=== PATIENT | female | born 1940 | race Caucasian/White ===

== ENCOUNTER 2016-06-12 14:40 | Inpatient (IN) | payer MEDICARE ==
[2016-06-12] VITALS (10 sets, daily range): BP systolic 139–160; BP diastolic 81–90; PULSE 90–93; RESP 19–32; O2SAT 88–100
[~2016-06-12] VITALS: Ht 154.9 cm; Wt 45.0 kg
[~2016-06-12 14:40] MED LIST: ADV250INH IH; ALBU18HF INH; ASPI-973 PO; ATRV10T PO; BISO5TAB2 PO; BUPR150T8 PO; IPRA3AMP IH; LEVO50TA83 PO; LEVO750T9 PO; LOSA25TA2 PO; OXYB5TAB10 PO; PRED-508 PO; ROFL500T PO; SERT50TA PO
[2016-06-12 15:13] LABS: BASOPHILS % (AUTO) 0.2 % (0-3); EOSINOPHILS % (AUTO) 8.7 % (0-5); MONOCYTES % (AUTO) 8.2 % (4-12); Mean Corpuscular Hemoglobin 27.3 pg (27.0-35.0); Mean Corpuscular Volume 93.1 fL (81-100); NEUTROPHILS % (AUTO) 70.6 % (40-74); Platelet Count 313 bil/L (150-400)
--- NOTE | 2016-06-12 15:27 | ED.REPORT ---
HPI-Dyspnea / Wheezing Date of Service Jun 12, 2016 ED Provider: Dav Larose DO Patient is a 75 year old female with a history of COPD, CHF, constant oxygen use and multiple other medical concerns presenting to the ED complaining of shortness of breath onset two days ago. She reports that she has never felt this way before. The patient admits to a productive cough, fatigue, diarrhea x2 daily, and waking up with a headache, though she denies current headache. The patient denies fever, vomiting, abdominal pain, photophobia, dysuria, chest pain and any recent injuries. She states that she has been using her nebulizers more the last few days. The patient normally uses oxygen but was not currently using it. Nursing Notes Stated Complaint: SHORTNESS OF BREATH Chief Complaint: Respiratory Distress Nursing Notes Reviewed: Yes Allergies: Coded Allergies: iodine (Verified Allergy, Mild, 06/12/16) rash cefuroxime (Verified Allergy, Unknown, 06/12/16) doxycycline (Verified Allergy, Unknown, 06/12/16) lisinopril (Verified Allergy, Unknown, 06/12/16) sulfanilamide (Verified Allergy, Unknown, 06/12/16) Scheduled Aspirin (Aspirin) 81 Mg Tablet.dr 81 MG PO DAILY Atorvastatin (Lipitor) 10 Mg Tab 10 MG PO HS Bisoprolol Fumarate (Bisoprolol Fumarate) 5 Mg Tablet 2.5 MG PO QAM Bupropion ER (Wellbutrin SR) 150 Mg Tablet.er 150 MG PO DAILY Fluticasone/Salmeterol (Advair 250-50 Diskus) 60 Puff/Inh Disk 1 PUFF IH BID Levofloxacin (Levaquin) 750 Mg Tablet 750 MG PO DAILYAC Levothyroxine (Synthroid) 50 Mcg Tablet 50 MCG PO DAILYAC Losartan Potassium (Cozaar) 25 Mg Tablet 25 MG PO DAILY Oxybutynin Chloride (Oxybutynin Chloride) 5 Mg Tablet 5 MG PO BID Prednisone (Deltasone) 20 Mg Tablet 40 MG PO DAILY Roflumilast (Daliresp) 500 Mcg Tablet 500 MCG PO DAILY Sertraline HCl (Zoloft) 50 Mg Tablet 150 MG PO DAILY Scheduled PRN Albuterol Sulfate (Ventolin HFA Inhaler) 200 Puff/18 Gm Inhaler 1 PUFF INH Q4 PRN PRN For Wheezing Ipratropium/Albuterol Sulfate (Iprat-Albut 0.5-3(2.5) mg/3 mL Inhalant Soln) 3 Ml Ampul.neb 3 ML IH Q6 PRN PRN qid General Time Seen by MD: 15:25 Chief Complaint Shortness of breath Hx Obtained From: Patient Arrived By: Walk-in Sudden in Onset?: No Onset Occurred: 2 days ago Recent Healthcare: Recent doctor visit Similar Sx Previous: No Past Medical History Past Medical History Notes: Last admit 01/2014 Past Medical History Chronic hypoxic hypercapnic respiratory failure due to chronic obstructive pulmonary disease on continuous 2 L/min NC oxygen. Nicotine dependence, active with 1-2 cigarette smoking with greater than 60 pack-year history. Congestive heart failure, chronic, systolic dysfunction due to ischemic cardiomyopathy. Echo (07/08/13): LVEF 30%-35% with severe hypokinesis of the majority of the posterior wall and distal half of the lateral wall. Coronary artery disease s/p VT on medical management only per Dr. Clifford Mora. Dyslipidemia. Anemia, chronic. Depression. Hypothyroidism. Insomnia. Osteoporosis. Colon polyps. Reports: COPD, Hyperlipidemia, Hypertension, Stroke Reports: Urinary tract infection Past Surgical History multiple colonoscopies, polypectomy Reports: Hysterectomy Family History Sisters had Lung cancer Smoking History Former Smoker (quit 2013) Social History Alcohol Use: "Social" Drug Use: Denies drug use Ambulatory Status Independent Review of Systems Constitutional: Reports: Fatigue, Denies: Fever Respiratory: Reports: Prod cough, clear, Shortness of breath Cardiovascular: Denies: Chest pain Complete sys rev & neg: except as marked. Eyes: Denies: Photophobia GI: Reports: Diarrhea (x2 a day), Denies: Abdominal pain, Vomiting Female: Denies: Dysuria Neurologic: Reports: Headache (not currently) Physical Exam Initial Vital Signs Vital Signs (First) Date Time Temp Pulse Resp B/P Pulse Ox O2 Delivery O2 Flow Rate FiO2 06/12/16 14:46 36.4 91 22 160/90 100 Simple Mask 8 06/12/16 16:00 30 Initial VS: Reviewed General/Constitutional: Awake, Alert Appearance / Presentation: Positive: Cachectic, Frail thin Neck: Atraumatic, Supple, Full range of motion, No JVD Respiratory / Chest: Atraumatic, Breath sounds = bilat, No respiratory distress diffuse expiratory wheezes Cardiovascular: Heart rate NL, Regular rhythm, Heart sounds NL ENT: Atraumatic, Airway patent, Mucous membranes moist Abdomen: Atraumatic, Soft, Non-tender Back: Atraumatic, Full range of motion Lower Extremity / Pelvis / MS: Atraumatic, Full range of motion Skin: Atraumatic, Color NL, No rash, Warm, Dry Neurologic: Oriented X3, Speech NL, No motor deficits, No sensory deficits Head / Eyes: Atraumatic, Normocephalic, PERRL, EOMI Upper Extremity / MS: Atraumatic, Full range of motion Psychiatric: Affect NL, Mood NL Interpretation & Diagnostics Lab Results Interpretation Result Diagram: 06/12/16 1509 06/12/16 1509 Test 06/12/16 15:09 White Blood Count 8.6th/mm3 (3.8-10.1) Red Blood Count 4.06mil/mm3 (3.90-5.20) Hemoglobin 11.1g/dL (12.0-15.6) Hematocrit 37.8% (35.0-46.0) Mean Corpuscular Volume 93.1fL (81-100) Mean Corpuscular Hemoglobin 27.3pg (27.0-35.0) Mean Corpuscular Hemoglobin Concent 29.4% (32.0-37.0) Red Cell Distribution Width 13.9% (12.3-15.4) Platelet Count 313bil/L (150-400) Neutrophils (%) (Auto) 70.6% (40-74) Lymphocytes (%) (Auto) 12.2% (14-46) Monocytes (%) (Auto) 8.2% (4-12) Eosinophils (%) (Auto) 8.7% (0-5) Basophils (%) (Auto) 0.2% (0-3) Sodium Level 135mEq/L (134-144) Potassium Level 4.8mEq/L (3.5-5.2) Chloride Level 89mEq/L (97-108) Carbon Dioxide Level 35mmol/L (18-29) Blood Urea Nitrogen 13mg/dL (8-27) Creatinine 0.60mg/dL (0.57-1.00) Estimat Glomerular Filtration Rate 140mL/min (>59) Glucose Level 116mg/dL (60-99) Calcium Level 10.4mg/dL (8.5-10.1) Total Bilirubin 0.2mg/dL (0.0-1.2) Aspartate Amino Transf (AST/SGOT) 36U/L (0-50) Alanine Aminotransferase (ALT/SGPT) 18U/L (0-32) Alkaline Phosphatase 67U/L (25-165) Troponin T < 0.010ug/L (0.0-0.011) Pro-B-Type Natriuretic Peptide 199.6pg/mL (0-301) Total Protein 6.9g/dL (6.4-8.4) Albumin 4.2g/dL (3.4-5.0) Lab Results Interpretation: pH 7.22/pCO2 104/ pO2 65.4/ cHCO3-(P) 42.7/ cBase(B) 13.3 ECG Interpretation ECG Interpretation: low voltage, all extremity lead <0.5mV No STEMI Interpreted by: ED physician Normal ECG Interpretation: Normal rate (92), Normal sinus rhythm X-Ray Chest Interpretation Chest Xray Interpretation: IMPRESSION: 1. Chronic obstructive pulmonary disease 2. No acute cardiopulmonary abnormality. Dictated by: Suhas Marino M.D. on 06/12/2016 at 15:29 Approved by: Suhas Marino M.D. on 06/12/2016 at 15:31 Interpretation / Wet Read by: Interpret - Radiologist Re-Eval/Medical Decision Med Decision/Clinical Course Hypoxia and hypercapnic respiratory failure due to COPD. Patient will be placed on BiPAP in the ER and admitted. Source of Hx: Old records Re-Evaluation/Progress #1: Time of Eval: 16:13 Patient Status: Condition improved Re-Evaluation/Progress Note: Rechecked patient whose condition has improved. Re-Evaluation/Progress #2: Time of Eval: 16:26 Patient Status: Condition improved Re-Evaluation/Progress Note: Rechecked patient. Discussed plan for admittance with the patient. The patient understands and agrees to the plan for admit. All questions were addressed. Consultation : Referral / Consult Name: Ranulfo Whaley MD Consulted With: Hospitalist Call Returned at: 16:47 Bomb Technician: Agrees with eval, Agrees with plan, Accepts admit Note: Consult with Dr. Whaley, hospitalist, who agrees with the evaluation and plan to admit the patient. Counseled Regarding: Diagnosis, Lab results, Need for admission Discharge & Departure Impression: Primary Impression: Hypercapnic respiratory failure Chronicity: unspecified Qualified Code: J96.92 - Respiratory failure, unspecified with hypercapnia Disposition: ADMITTED TO HOSPITAL Discharge Condition All VS Reviewed: Yes Condition: Stable Referrals: Edil Miller MD (PCP) Crit Care Except Billable Proc Time Spent: 30-74 minutes Services Performed: Patient management by me, Time spent at bedside, Reviewing test results Critical Care Notes: See MDM Scribe Attestation Portions of this note were transcribed by Jayla Nguyễn and Sophia Sarabia. I, Dr. Larose personally performed the history, physical exam and medical decision-making; I reviewed and confirmed the accuracy of the information in the transcribed note. Signed by: Jayla Nguyễn and eJnny Cullen, and [phone]. copies to: Edil Miller MD, Timothy S DO Jun 12, 2016 15:27 Mary Nguyễn Jun 12, 2016 15:39 SOPHIA SARABIA Jun 12, 2016 17:56
--- NOTE | 2016-06-12 15:32 | DRSVH ---
PROCEDURE: X-RAY CHEST ONE VIEW, PORTABLE ([id number]) INDICATIONS: shortness of breath TECHNIQUE: One view of the chest was acquired. COMPARISON: 09/30/2015 FINDINGS: Surgical changes and devices: None. Lungs and pleura: No pleural effusions or pneumothorax. Lungs are clear. Lung is hyperexpanded and upper lobes are hyperlucent compatible with emphysema. Mediastinum: Mediastinal contours appear normal. Heart size is normal. Aortic calcifications. Bones and chest wall: No suspicious bony lesions. Old fracture right lower ribs laterally. Overlyin g soft tissues appear unremarkable. IMPRESSION: 1. Chronic obstructive pulmonary disease 2. No acute cardiopulmonary abnormality. Dictated by: Suhas Marino M.D. on 06/12/2016 at 15:29 Approved by: Suhas Marino M.D. on 06/12/2016 at 15:31
[2016-06-12] MEDS ORDERED: Albuterol 2.5 mg/3 mL Inhalation Solution NEB ONE (15:35)
[2016-06-12 15:39] LABS: TROPONIN T < 0.010 ug/L (0.0-0.011)
--- NOTE | 2016-06-12 15:58 | ABG ---
DateTimeAnalyzed 15:51:56 -_ pH ____7.220 - 7.350 7.450 pCO2 104 -mmHg 35.0 45.0 pO2 ___65.4__ -mmHg 70.0 100 HCO3- ___42.7__ -mmol/L 22.0 26.0 ABE ___13.3__ -mmol/L -2.0 2.0 tHb ___11.0__ -g/dL 12.0 18.0 O2Hb ___90.1__ -% 95.0 COHb ____2.0__ -% 1.5 MetHb ___-0.1__ -% 0.4 1.5 sO2 ___91.8__ -% FIO2 ___28.0__ -% Drawn By KBB - Date/Time Notified____ 15:57:00 -_ Oxygen Device 1 __CANNULA - Notified By KBB - Notified Whom Dav O'cele DO -_ B 753 -mmHg K+ ____4.5__ -mmol/L tO2 ___14.0__ -Vol% Sanjay test _Positive -
[2016-06-12] MEDS ORDERED: MethylprednisoLONE Sodium Succinate 62.5 mg/mL 2 mL Inj IVPUSH ONE (16:20)
[2016-06-12] MEDS ORDERED: Alum-Mag Hydrox-Simeth 30 mL Suspension PO PRN ×2 (16:50→18:00)
[2016-06-12] MEDS ORDERED: Ondansetron 2 mg/mL 2 mL Inj IVPUSH PRN ×2 (16:50→18:00)
[2016-06-12] MEDS ORDERED: Polyethylene Glycol (PEG) 17 Gm Powder PO PRN (18:00)
--- NOTE | 2016-06-12 18:19 | PCM.HPMED ---
Subjective Date of Service Jun 12, 2016 Primary Provider: Admitting Physician: Primary Care Physician: Edil Miller MD Attending Physician: Chief Complaint: Shortness of breath History of Present Illness: Patient is a 75-year-old female with COPD, CHF and CVA presenting with shortness of breath. Patient reports the shortness of breath started about two days ago with an associated occasional cough. She states the cough productive of clear, milky sputum. She currently resides at [facility] and reports using supplemental oxygen at baseline and Trilogy at night; however, due to the mask being uncomfortable she does not use Trilogy consistently. Earlier today the patient was taking a nap and the nasal cannula for her supplemental oxygen fell off. Her electrical service technician happened to be present and found the patient somnolent. The patient is not aware of how long she was without supplemental oxygen. The patient was subsequently brought to [facility] ED for further evaluation. ABG in the ED : 7.230 / 104 / 65.4 / 42.7. Patient was started on BiPAP and given a dose of Solu-Medrol 125mg in the ED. At time of visit, the patient was alert. She denies fever, chills, chest pain, abdominal pain, emesis, dysuria. Vitals in the ED: temp 36.4, HR 91, RR 22 satting 100% on BiPAP, BP 160/90. Chest x-ray suggestive of COPD and reads no acute cardiopulmonary abnormality. Review of Systems: A comprehensive review of systems was conducted with the patient and found to be negative except as above in the History of Present Illness. Allergies Coded Allergies: iodine (Verified Allergy, Mild, 06/12/16) rash cefuroxime (Verified Allergy, Unknown, 06/12/16) doxycycline (Verified Allergy, Unknown, 06/12/16) lisinopril (Verified Allergy, Unknown, 06/12/16) sulfanilamide (Verified Allergy, Unknown, 06/12/16) Home Medications Advair 250/50 1 puff BID ASA 81mg daily Azithromycin 250mg every other day Bisoprolol fumarate 2.5mg daily Losartan 25mg daily Daliresp 500mcg daily Ipratropium bromide 0.06% nasal spray - 2 sprays each nostril BID Levothyroxine 50mcg daily Atorvastatin 10mg daily Oxybutynin 5mg daily Ventolin 90mcg 2 puffs Q4-6 hours PRN Zoloft 150mg daily DuoNeb PMH Chronic hypoxic hypercapnic respiratory failure due to chronic obstructive pulmonary disease on continuous 2 L/min NC oxygen HFrEF secondary to ischemic cardiomyopathy. Echo (07/08/13) LVEF 30%-35% Coronary artery disease s/p NM Dyslipidemia Anemia, chronic Depression Hypothyroidism Insomnia Osteoporosis Hypertension History of CVA . Surgical History Hysterectomy Cataracts Family History Sister with lung cancer Social History Occupation: Retired, former sign erector and repairer Hx Alcohol Use: Yes (2 drinks a day) Hx Substance Use: No Hx Tobacco Use: Yes (1-2 PPD x 50 years) Smoking Status: Former Smoker (quit 2013) Exam Vital Signs Vital Sign - Last Date Time Temp Pulse Resp B/P Pulse Ox O2 Delivery O2 Flow Rate FiO2 06/12/16 14:46 36.4 91 22 160/90 100 Simple Mask 8 Exam General: No acute distress, thin and frail appearing, appropriately interactive HEENT: Normocephalic, atraumatic. External ears without defect. Anicteric sclerae, moist conjunctivae, and no lid lag. BiPAP mask in place. Neck: Supple. No jugular venous distension. Cardiovascular: Distant heart sounds. Regular rate and rhythm with no murmurs, rubs, or gallops appreciated Pulmonary: Diffuse wheezing bilaterally. Poor effort. No use of accessory muscles. Abdomen: Bowel tones present. Soft, nontender, nondistended. No hepatosplenomegaly or masses appreciated. Extremities: No clubbing, cyanosis, edema, or lymphadenopathy appreciated. Skin: Normal temperature, turgor, and texture; no rash, ulcers, or subcutaneous nodules appreciated. Small skin abrasions on left osorio. Neurological: Cranial nerves grossly intact. Psychiatric: Normal mood and affect. Alert and oriented to person, place, and time. Lab and Diagnostics Result Diagram: 06/12/16 1509 06/12/16 1509 X-Rays, CTs and MRIs Date of Service: 06/12/16 1504 PROCEDURE: X-RAY CHEST ONE VIEW, PORTABLE ([id number]) INDICATIONS: shortness of breath TECHNIQUE: One view of the chest was acquired. COMPARISON: 09/30/2015 FINDINGS: Surgical changes and devices: None. Lungs and pleura: No pleural effusions or pneumothorax. Lungs are clear. Lung is hyperexpanded and upper lobes are hyperlucent compatible with emphysema. Mediastinum: Mediastinal contours appear normal. Heart size is normal. Aortic calcifications. Bones and chest wall: No suspicious bony lesions. Old fracture right lower ribs laterally. Overlying soft tissues appear unremarkable. IMPRESSION: 1. Chronic obstructive pulmonary disease 2. No acute cardiopulmonary abnormality. Dictated by: Suhas Marino M.D. on 06/12/2016 at 15:29 Approved by: Suhas Marino M.D. on 06/12/2016 at 15:31 Assessment & Plan Patient is a 75-year-old female with COPD, CHF and CVA presenting with shortness of breath and admitted for acute hypoxemic hypercapnic respiratory failure. Hospital day #1. 1. Acute on chronic hypoxemic, hypercapnic respiratory failure. Present on admission. Ongoing -Suspect secondary to COPD exacerbation and period without supplemental oxygen -ABG in ED: 7.220 / 104 / 65.4 / 42.7 -Continue with BiPAP -Oxygen to keep sats 89-92% -Repeat ABG 2. Acute COPD exacerbation. Present on admission. Ongoing -Baseline supplemental oxygen 2L/min at home -Patient received Solu-Medrol 125mg in ED -Prednisone 40mg daily. Anticipate taper upon discharge -Continue home azithromycin 250mg every other day -DuoNeb QIDWA -Albuterol neb PRN 3. Hypertension, chronic. Present on admission. Currently not controlled -Continue losartan 25mg daily 4. Alcohol dependence, chronic. Present on admission. Ongoing -Patient reports drinking 2 glasses of vodka every night -Currently no signs of withdrawals. Continue to monitor for withdrawal and initiate CIWA if necessary 5. Normocytic anemia, chronic. Present on admission. Active -Uncertain etiology but a recognized issue since 2013 based on medical records 6. HFrEF, chronic. Present on admission. Stable -Not currently in acute exacerbation based on physical examination. Pro-BNP 199.6 -Last echo 12/2015: Borderline global hypokinesis. EF 50%-55% -Continue losartan 25mg and bisoprolol 2.5mg daily 7. CAD, chronic. Present on admission. Presumed stable -Continue aspirin 81mg 8. Dyslipidemia, chronic. Present on admission. Presumed stable -Continue atorvastatin 10mg daily 9. Hypothyroidism, chronic. Present on admission. Stable -Continue home levothyroxine dose 50mcg daily 10. Depression, chronic. Present on admission. Presumed stable -Continue home dose Zoloft 150 mg daily 11. History of tobacco use -Congratulated patient on maintaining smoking abstinence. Patient Status: Patient is admitted under inpatient status with expected length of stay greater than 2 midnights due to severity of presenting symptoms, risk of adverse event, and complexity of treatment plan. Pain Evaluation: Adequate Pain Control VTE Prophylaxis: Sub-Q Heparin (Unfractionated) Resuscitation Status: DNR/DNI:Do Not Resuscitate/Intubate Attending Statement The patient was seen and examined together with Dr. Gill on 06/12/2016 and I agree with the history, exam and plan as outlined in the note above. . Clement Gill DO Jun 12, 2016 16:52 Ranulfo Whaley MD Jun 15, 2016 19:39
--- NOTE | 2016-06-12 18:29 | NUR ---
Transferred from ER to [facility] and placed back on BIPAP at bedside. Small ffm used, patient has a small facial features and dentures kept in to help maintain seal due to small face. No mepilex used at this time, may consider if patient bridge of nose appears red/skin breakdown. Home Trilogy ventilator brought into bedside.
[2016-06-12] MEDS ORDERED: AZIT250T4 PO (18:53)
[2016-06-12] MEDS ORDERED: SERT100T9 PO (18:53)
--- NOTE | 2016-06-12 19:21 | NUR ---
Arrived to unit Pt arrived to [facility] room 2005 at ~1815 from ED, Pt placed back on BiPAP by RT, VSS on BiPAP, denies pain, A&Ox3.
--- NOTE | 2016-06-12 19:31 | ABG ---
DateTimeAnalyzed 19:28:00 -_ pH ____7.259 - 7.350 7.450 pCO2 ___82.5__ -mmHg 35.0 45.0 pO2 ___68.3__ -mmHg 69.0 116 HCO3- ___35.7__ -mmol/L 22.0 26.0 ABE ____6.7__ -mmol/L -2.0 2.0 tHb ___11.0__ -g/dL O2Hb ___92.3__ -% COHb ____1.3__ -% MetHb ____1.0__ -% sO2 ___94.5__ -% FIO2 ___40.0__ -% Drawn By MT - Date/Time Notified____ 19:31:00 -_ Oxygen Device 1 ____BIPAP - Notified By MT - Notified Whom ly - B 754 -mmHg tO2 ___14.3__ -Vol% Sanjay test _Positive -
[2016-06-12] MEDS: Albuterol-Ipratropium 3 mL Inhalation Solution NEB SCH (21:00)
[2016-06-13] VITALS (13 sets, daily range): BP systolic 110–134; BP diastolic 62–82; PULSE 83–100; RESP 18–26; O2SAT 92–100
[2016-06-13] MEDS: Heparin 5,000 Unit/mL Inj SUBQ SCH ×3 (00:59→16:20)
[2016-06-13] MEDS: Albuterol 1.25 mg/3 mL Inhalation Solution NEB PRN ×2 (01:15→23:22)
[2016-06-13 07:19] LABS: BASOPHILS % (AUTO) 0 % (0-3); EOSINOPHILS % (AUTO) 0 % (0-5); MONOCYTES % (AUTO) 12.5 % (4-12); Mean Corpuscular Hemoglobin 27.4 pg (27.0-35.0); Mean Corpuscular Volume 93.6 fL (81-100); NEUTROPHILS % (AUTO) 73.5 % (40-74); Platelet Count 305 bil/L (150-400)
--- NOTE | 2016-06-13 07:46 | NUR ---
Respiratory Pt continued on Bipap @ 45% FiO2 all shift. Pt stated that she was feeling much better and looking forward to being able to take mask off. Pt ABG @ 191 pH7.25 pCO2 83 pO2 68.3 cHCO3 35.7. Suggested to Day RN to have ABG's redrawn this AM to see if she would be able to take mask off today and transition to NC and home trilogy machine. VSS and Tele SR
[2016-06-13] MEDS ORDERED: predniSONE 20 mg Tablet PO SCH ×2 (08:30)
[2016-06-13] MEDS: ROFLUMILAST 500 MCG PO SCH (08:30)
[2016-06-13] MEDS: Albuterol-Ipratropium 3 mL Inhalation Solution NEB SCH ×3 (10:30→20:19)
[2016-06-13] MEDS: levoFLOXacin 750 mg Tablet PO SCH (10:34)
[2016-06-13] MEDS: BISOPROLOL PO SCH (10:38)
--- NOTE | 2016-06-13 12:59 | ABG ---
DateTimeAnalyzed 10:58:12 -_ pH ____7.257 - 7.350 7.450 pCO2 ___88.7__ -mmHg 35.0 45.0 pO2 ___98.0__ -mmHg 70.0 100 HCO3- ___39.5__ -mmol/L 22.0 26.0 ABE ___11.1__ -mmol/L -2.0 2.0 tHb ___10.8__ -g/dL 12.0 18.0 O2Hb ___96.8__ -% 95.0 COHb ____1.7__ -% 1.5 MetHb ____0.0__ -% 0.4 1.5 sO2 ___98.5__ -% FIO2 ___45.0__ -% PEEP ____6.0__ -cmH2O Set_RR 18 -b/min Vt __340.0__ -L Drawn By gj - Date/Time Notified____ 12:59:00 -_ Spontaneous_RR 21 -b/min Oxygen Device 1 ____BIPAP - Notified By gj - Notified Whom ___DR. LY - B 754 -mmHg K+ ____5.0__ -mmol/L tO2 ___14.8__ -Vol% Sanjay test _Positive -
--- NOTE | 2016-06-13 13:49 | NUR ---
Social Work Note: Initial Assessment Data& Assessment: EMR reviewed. SW met with pt at bedside to discuss discharge planning, SW role explained. Tram Quiles is a 75 year old female admitted on 06/12/2016 for hypercapneic and hypoxic respiratory failure. Pt has Medicare and AARP supplemental insurance coverage. Pt live at [facility] on the assisted side. Per Pt and [facility] RN, pt does not require any assistance from [facility] staff and is independent. Pt is on the assisted side in order to have regular check ins and meal delivery. Pt does have [employer] twice a week for one hour each visit to help with chores around the house. Pt owns a cane and a walker but only uses them when she leaves the home. Pt does use oxygen and a Trilogy machine at baseline. Pt children or [facility] staff transport her to all appointments. Pt does have a hx at [facility] and a hx with [facility]. Pt explained if she requires Home Health or SNF at time of discharge these would be her preferences. Pt also inquired about Hospice services, however, pt declined a hospice informational visit at this time, but will notify SW if she changes her mind. Pt does not have LTC insurance or VA benefits. Pt does have DPOA/Advance Directive paperwork completed, SW requested a copy when possible for her chart. Pt denies any other needs at this time. [facility] does require a bedside assessment prior to pt return closer to discharge. SW to continue to follow. Plan: Anticipated discharge back to [facility] vs. [facility] with Home Health vs. SNF. [facility] does require a bedside assessment prior to pt return closer to discharge. Pt denies any other needs at this time. SW to continue to follow. ARNULFO [place] Addendum: 06/13/16 at 1401 by GLENN NAVARRO Amended: Links added.
[2016-06-13] MEDS ORDERED: 0.9% Sodium Chloride 1,000 ML IV ONE (14:20)
[2016-06-13 15:19] LABS: APPEARANCE,URINE CLEAR (CLEAR,HAZY); COLOR,URINE YELLOW (YELLOW); OCCULT BLOOD,URINE MODERATE (NEGATIVE); UROBILINOGEN,URINE NORMAL (NORMAL)
--- NOTE | 2016-06-13 17:06 | PCM.PNMED ---
Subjective Date of Service Jun 13, 2016 Subjective No overnight events. At time of visit, the patient is seen on BiPAP. She reports little change in her breathing compared to yesterday after her admission. Patient reports being hungry but otherwise denies fever, chills, chest pain, abdominal pain, nausea, emesis. Exam Vital Signs Vital Sign - Last Date Time Temp Pulse Resp B/P Pulse Ox O2 Delivery O2 Flow Rate FiO2 06/13/16 12:31 36.6 83 23 110/62 100 BiPAP 06/13/16 10:45 45 06/12/16 14:46 8 Intake and Output 06/12/16 06/12/16 06/13/16 Cumulative From/Thru 15:00 23:00 07:00 06/12/16 14:46 - 06/13/16 05:06 Intake Total 200 ml 200 ml Output Total 600 ml 600 ml Balance -400 ml -400 ml Intake Oral 200 ml 200 ml Output Urine Total 600 ml 600 ml # Voids 0 0 Exam General: No acute distress, thin and frail appearing, appropriately interactive HEENT: Normocephalic, atraumatic. External ears without defect. Anicteric sclerae, moist conjunctivae, and no lid lag. BiPAP mask in place. Neck: Supple Cardiovascular: Distant heart sounds. Regular rate and rhythm with no murmurs, rubs, or gallops appreciated Pulmonary: Diffuse wheezing bilaterally. Poor effort. No use of accessory muscles. Abdomen: Bowel tones present. Soft, nontender, nondistended. No hepatosplenomegaly or masses appreciated. Extremities: No clubbing, cyanosis, edema, or lymphadenopathy appreciated. Skin: Normal temperature, turgor, and texture; no rash, ulcers, or subcutaneous nodules appreciated. Small skin abrasions on left osorio. Neurological: Cranial nerves grossly intact. Psychiatric: Normal mood and affect. Alert and oriented to person, place, and time. IVs and Medications IV Fluids 1L NS at 75ml/hr Medications Reviewed: Medications were reviewed in detail Lab and Diagnostics Result Diagram: 06/13/16 0710 06/13/16 0710 X-Rays, CTs and MRIs Date of Service: 06/12/16 1504 PROCEDURE: X-RAY CHEST ONE VIEW, PORTABLE ([id number]) INDICATIONS: shortness of breath TECHNIQUE: One view of the chest was acquired. COMPARISON: 09/30/2015 FINDINGS: Surgical changes and devices: None. Lungs and pleura: No pleural effusions or pneumothorax. Lungs are clear. Lung is hyperexpanded and upper lobes are hyperlucent compatible with emphysema. Mediastinum: Mediastinal contours appear normal. Heart size is normal. Aortic calcifications. Bones and chest wall: No suspicious bony lesions. Old fracture right lower ribs laterally. Overlying soft tissues appear unremarkable. IMPRESSION: 1. Chronic obstructive pulmonary disease 2. No acute cardiopulmonary abnormality. Dictated by: Suhas Marino M.D. on 06/12/2016 at 15:29 Approved by: Suhas Marino M.D. on 06/12/2016 at 15:31 Assessment & Plan Patient is a 75-year-old female with COPD, CHF and CVA presenting with shortness of breath and admitted for acute hypoxemic hypercapnic respiratory failure. Hospital day #2. 1. Acute on chronic hypoxemic, hypercapnic respiratory failure. Present on admission. Improving -Suspect secondary to COPD exacerbation and period without supplemental oxygen. Infectious etiology unlikely - chest x-ray without infiltrate, no fever/chills, procalcitonin negative -Repeat ABG this morning with little improvement in pCO2 -Continue with BiPAP -Oxygen to keep sats 89-92% -Repeat ABG in the morning 2. Acute COPD exacerbation. Present on admission. Active -Baseline supplemental oxygen 2L/min at home -Patient received Solu-Medrol 125mg in ED -Prednisone 60mg daily. Anticipate taper upon discharge -Start levofloxacin 750mg daily -DuoNeb QIDWA -Albuterol neb PRN 3. Hypertension, chronic. Present on admission. Improving -Continue losartan 25mg daily 4. Alcohol dependence, chronic. Present on admission. Active -Patient reports drinking 2 glasses of vodka every night -Currently no signs of withdrawals. Continue to monitor for withdrawal and initiate CIWA if necessary 5. Normocytic anemia, chronic. Present on admission. Active -Uncertain etiology but a recognized issue since 2013 based on medical records 6. HFrEF, chronic. Present on admission. Stable -Not currently in acute exacerbation based on physical examination. Pro-BNP 199.6 -Last echo 12/2015: Borderline global hypokinesis. EF 50%-55% -Continue losartan 25mg and bisoprolol 2.5mg daily 7. CAD, chronic. Present on admission. Presumed stable -Continue aspirin 81mg 8. Dyslipidemia, chronic. Present on admission. Presumed stable -Continue atorvastatin 10mg daily 9. Hypothyroidism, chronic. Present on admission. Stable -Continue home levothyroxine dose 50mcg daily 10. Depression, chronic. Present on admission. Presumed stable -Continue home dose Zoloft 150 mg daily 11. History of tobacco use -Congratulated patient on maintaining smoking abstinence. Disposition: Anticipate discharge back to [place] in about 1-2 days without needs Pain Evaluation: Adequate Pain Control VTE Prophylaxis: Sub-Q Heparin (Unfractionated) Resuscitation Status: DNR/DNI:Do Not Resuscitate/Intubate Attending Statement The patient was seen and examined together with Dr. Gill on 06/13/2016 and I agree with the history, exam and plan as outlined in the note above. . Clement Gill DO Jun 13, 2016 14:47 Ranulfo Whaley MD Jun 15, 2016 19:36
--- NOTE | 2016-06-13 19:56 | NUR ---
Possible confusion/restlessness Pt had many needs and worries this shift. Calm approach and relaxing atmosphere helpful. Many complaints of uncomfortable bipap mask. RT helpful. Pt stated she was "seeing bugs" crawling on the inside of her bipap mask. Pt requested to have her urine tested. UA sent out, unremarkable. No further statements of hallucinations.
[2016-06-14] VITALS (11 sets, daily range): BP systolic 101–144; BP diastolic 63–82; PULSE 89–95; RESP 16–22; O2SAT 88–99
[2016-06-14] MEDS: Heparin 5,000 Unit/mL Inj SUBQ SCH ×3 (00:10→17:26)
[2016-06-14 02:54] LABS: BASOPHILS % (AUTO) 0.1 % (0-3); EOSINOPHILS % (AUTO) 0.3 % (0-5); MONOCYTES % (AUTO) 15.6 % (4-12); Mean Corpuscular Hemoglobin 26.9 pg (27.0-35.0); Mean Corpuscular Volume 92.2 fL (81-100); NEUTROPHILS % (AUTO) 67.1 % (40-74); Platelet Count 272 bil/L (150-400)
--- NOTE | 2016-06-14 06:07 | NUR ---
Hallucinations/Respiratory Pt reports having hallucinations today. States that she was seeing bugs on her glasses, she thought that her mother was in the room and that the cupboard was a tin man. pt states that she is not sweaty, denies headache, shakiness, nausea and last hallucination was at 1500. Pt continues on Bipap with settings adjusted as needed. Pt will desat into the 80's at times with activity and while sleeping. Bipap settings currently 25% FiO2. VSS and Tele SR
--- NOTE | 2016-06-14 06:28 | ABG ---
DateTimeAnalyzed 06:24:00 -_ pH ____7.369 - 7.350 7.450 pCO2 ___66.0__ -mmHg 35.0 45.0 pO2 ___54.7__ -mmHg 69.0 116 HCO3- ___37.1__ -mmol/L 22.0 26.0 ABE ___10.5__ -mmol/L -2.0 2.0 tHb ____9.3__ -g/dL O2Hb ___87.8__ -% COHb ____1.4__ -% MetHb ____1.2__ -% sO2 ___90.1__ -% FIO2 ___30.0__ -% PEEP ____6.0__ -cmH2O Set_RR ___18.0__ -b/min Vt __340.0__ -L Drawn By RB - Date/Time Notified____ 06:27:00 -_ Spontaneous_RR ___21.0__ -b/min Oxygen Device 1 ____BIPAP - Notified By RB - Notified Whom Som H, RN - B 750 -mmHg tO2 ___11.5__ -Vol% Sanjay test _Positive -
[2016-06-14] MEDS: Albuterol-Ipratropium 3 mL Inhalation Solution NEB SCH ×4 (08:12→20:33)
[2016-06-14] MEDS: ROFLUMILAST 500 MCG PO SCH (08:30)
[2016-06-14] MEDS: BISOPROLOL PO SCH (08:30)
[2016-06-14] MEDS: levoFLOXacin 750 mg Tablet PO SCH (08:47)
[2016-06-14] MEDS: predniSONE 20 mg Tablet PO SCH (08:48)
--- NOTE | 2016-06-14 10:13 | NUR ---
Respiratory Pt on Home trilogy with home settings, small ju mask and 2L O2 bleed in. Tolerating well, Sat 90% HR 87, RR 20. V60 on stand-by in room.
--- NOTE | 2016-06-14 12:26 | NUR ---
Mentation Pt no c/o hallucinations this am, Pt A&Ox3 updated.
--- NOTE | 2016-06-14 13:33 | PCM.PNMED ---
Subjective Date of Service Jun 14, 2016 Subjective Overnight patient was hallucinating, seeing bugs. This has resolved. She reports continued wheezing but reports her breathing is improved compared to yesterday. Patient denies fever, chills, chest pain, abdominal pain, nausea, emesis. Exam Vital Signs Vital Sign - Last Date Time Temp Pulse Resp B/P Pulse Ox O2 Delivery O2 Flow Rate FiO2 06/14/16 08:43 36.5 92 20 144/82 91 Nasal Cannula 2.00 06/14/16 08:16 25 Intake and Output 06/13/16 06/13/16 06/14/16 Cumulative From/Thru 15:00 23:00 07:00 06/12/16 14:46 - 06/14/16 04:56 Intake Total 0 ml 240 ml 440 ml Output Total 200 ml 500 ml 1300 ml Balance -200 ml -260 ml -860 ml Intake Oral 0 ml 240 ml 440 ml Output Urine Total 200 ml 500 ml 1300 ml # Voids 0 # Bowel Movements 0 0 Exam General: No acute distress, thin and frail appearing, appropriately interactive HEENT: Normocephalic, atraumatic. External ears without defect. Anicteric sclerae, moist conjunctivae, and no lid lag. BiPAP mask in place. Neck: Supple Cardiovascular: Distant heart sounds. Regular rate and rhythm with no murmurs, rubs, or gallops appreciated Pulmonary: Diffuse wheezing bilaterally. Poor effort. No use of accessory muscles. Abdomen: Bowel tones present. Soft, nontender, nondistended. No hepatosplenomegaly or masses appreciated. Extremities: No clubbing, cyanosis, edema, or lymphadenopathy appreciated. Skin: Normal temperature, turgor, and texture; no rash, ulcers, or subcutaneous nodules appreciated. Small skin abrasions on left osorio. Neurological: Cranial nerves grossly intact. Psychiatric: Normal mood and affect. Alert and oriented to person, place, and time. Lab and Diagnostics Result Diagram: 06/14/16 0240 06/14/16 0240 X-Rays, CTs and MRIs Date of Service: 06/12/16 1504 PROCEDURE: X-RAY CHEST ONE VIEW, PORTABLE ([id number]) INDICATIONS: shortness of breath TECHNIQUE: One view of the chest was acquired. COMPARISON: 09/30/2015 FINDINGS: Surgical changes and devices: None. Lungs and pleura: No pleural effusions or pneumothorax. Lungs are clear. Lung is hyperexpanded and upper lobes are hyperlucent compatible with emphysema. Mediastinum: Mediastinal contours appear normal. Heart size is normal. Aortic calcifications. Bones and chest wall: No suspicious bony lesions. Old fracture right lower ribs laterally. Overlying soft tissues appear unremarkable. IMPRESSION: 1. Chronic obstructive pulmonary disease 2. No acute cardiopulmonary abnormality. Dictated by: Suhas Marino M.D. on 06/12/2016 at 15:29 Approved by: Suhas Marino M.D. on 06/12/2016 at 15:31 Assessment & Plan Patient is a 75-year-old female with COPD, CHF and CVA presenting with shortness of breath and admitted for acute hypoxemic hypercapnic respiratory failure. Hospital day #3. 1. Acute on chronic hypoxemic, hypercapnic respiratory failure. Present on admission. Improving -Suspect secondary to COPD exacerbation and period without supplemental oxygen. Infectious etiology unlikely - chest x-ray without infiltrate, no fever/chills, procalcitonin negative -Much improved ABG this morning with pCO2 66 -Wean off BiPAP -Oxygen to keep sats 89-92% 2. Acute COPD exacerbation. Present on admission. Active -Baseline supplemental oxygen 2L/min at home -Patient received Solu-Medrol 125mg in ED -Prednisone 40mg daily. Anticipate taper upon discharge -Continue levofloxacin 750mg daily with anticipated end date on 06/18/2016 -DuoNeb QIDWA -Albuterol neb PRN 3. Hypertension, chronic. Present on admission. Controlled -Continue losartan 25mg daily 4. Alcohol dependence, chronic. Present on admission. Active -Patient reports drinking 2 glasses of vodka every night -Currently no signs of withdrawals. Continue to monitor for withdrawal and initiate CIWA if necessary 5. Normocytic anemia, chronic. Present on admission. Active -Uncertain etiology but a recognized issue since 2013 based on medical records 6. HFrEF, chronic. Present on admission. Stable -Not currently in acute exacerbation based on physical examination. Pro-BNP 199.6 -Last echo 12/2015: Borderline global hypokinesis. EF 50%-55% -Continue losartan 25mg and bisoprolol 2.5mg daily 7. CAD, chronic. Present on admission. Presumed stable -Continue aspirin 81mg 8. Dyslipidemia, chronic. Present on admission. Presumed stable -Continue atorvastatin 10mg daily 9. Hypothyroidism, chronic. Present on admission. Stable -Continue home levothyroxine dose 50mcg daily 10. Depression, chronic. Present on admission. Presumed stable -Continue home dose Zoloft 150 mg daily 11. History of tobacco use -Congratulated patient on maintaining smoking abstinence. Disposition: Anticipate discharge back to [place] in about 1-2 days without needs Pain Evaluation: Adequate Pain Control VTE Prophylaxis: Sub-Q Heparin (Unfractionated) Resuscitation Status: DNR/DNI:Do Not Resuscitate/Intubate Attending Statement The patient was seen and examined together with Dr. Gill on 06/14/2016 and I agree with the history, exam and plan as outlined in the note above. . Clement Gill DO Jun 14, 2016 10:30 Ranulfo Whaley MD Jun 15, 2016 19:39
--- NOTE | 2016-06-14 14:25 | NUR ---
Social Work: Readiness for Discharge D: Pt discussed in am rounds. Pt is not medically stable for discharge at this time but is anticipated to be ready to d/c back to [place] on Saturday. t/c to [place]; TRANSITION SPECIALIST spoke with recreation assistant active directory engineer, Janna. She is requesting clinicals on the pt. to determine if they will need to complete bedside assessment. Clinicals faxed to [phone]. Pt has been up to [facility]; TRANSITION SPECIALIST requested RN ambulate the pt to assess whether PT eval is necessary. A: Pt who is from [facility] but is mostly I P: Anticipate pt to discharge back to [facility] pending bedside assessment and/or acceptance back from [facility]; TRANSITION SPECIALIST to continue to follow. ARNULFO Jeronimo
--- NOTE | 2016-06-14 19:10 | NUR ---
Resp/Activity Pt transitioned from BiPAP at 25% FiO2 to 1.5-3L via nasal cannula which maintained Pt's sats in the 88-92% goal range. Pt SBA to help with lines up to chair at bedside for dinner, Pt on 1.5L at this time, Pt's SPO2 sats dropped to the upper 70s, Pt recovered back to the 88-92% range at rest on 2L via nasal cannula. Pt utilizing home trilogy unit outside of meal times.
[2016-06-14] MEDS: Albuterol 1.25 mg/3 mL Inhalation Solution NEB PRN (22:23)
[2016-06-15] VITALS (17 sets, daily range): BP systolic 120–153; BP diastolic 73–82; PULSE 83–103; RESP 16–24; O2SAT 80–96
[2016-06-15] MEDS: Heparin 5,000 Unit/mL Inj SUBQ SCH ×3 (00:34→15:52)
[2016-06-15 02:38] LABS: BASOPHILS % (AUTO) 0.2 % (0-3); EOSINOPHILS % (AUTO) 0.2 % (0-5); MONOCYTES % (AUTO) 12.8 % (4-12); Mean Corpuscular Hemoglobin 26.9 pg (27.0-35.0); Mean Corpuscular Volume 92.8 fL (81-100); NEUTROPHILS % (AUTO) 62.5 % (40-74); Platelet Count 247 bil/L (150-400)
--- NOTE | 2016-06-15 04:18 | NUR ---
Respiratory PT remains on RESEARCH EXECUTIVE. Oxygen on the trilogy was 78% on 5l bleed in. RT called. Instructed this RN to removed trilogy. Placed pt on 3l NC and sats are 94%. RT is at bedside and placing pt on bi pap.
[2016-06-15] MEDS: Albuterol-Ipratropium 3 mL Inhalation Solution NEB SCH ×4 (08:09→21:35)
[2016-06-15] MEDS: ROFLUMILAST 500 MCG PO SCH (08:30)
[2016-06-15] MEDS: levoFLOXacin 750 mg Tablet PO SCH (09:08)
[2016-06-15] MEDS: predniSONE 20 mg Tablet PO SCH (09:08)
--- NOTE | 2016-06-15 10:07 | NUR ---
DEE DEE signed
[2016-06-15] MEDS: Albuterol 1.25 mg/3 mL Inhalation Solution NEB PRN (11:03)
[2016-06-15] MEDS: BISOPROLOL PO SCH (11:17)
--- NOTE | 2016-06-15 11:54 | PCM.PNMED ---
Subjective Date of Service Jun 15, 2016 Subjective Overnight the patient had reported drops in oxygen saturations to 70% while on Trilogy with 5L O2 bleed in. Interestingly, when placed on nasal cannula 3L there was reported improvement in her oxygen saturations to 94%. This morning there has been reported drops in her oxygen saturations into the 50-60% while getting up and going to bedside commode and requiring approximately 5 minutes to recuperate. Patient reports continued wheezing but denies fever, chills, chest pain, abdominal pain, nausea, emesis. Exam Vital Signs Vital Sign - Last Date Time Temp Pulse Resp B/P Pulse Ox O2 Delivery O2 Flow Rate FiO2 06/15/16 11:07 98 20 86 Nasal Cannula 3.00 06/15/16 09:01 36.9 140/82 06/14/16 08:16 25 Intake and Output 06/14/16 06/14/16 06/15/16 Cumulative From/Thru 15:00 23:00 07:00 06/12/16 14:46 - 06/15/16 06:22 Intake Total 1225 ml 453 ml 2118 ml Output Total 200 ml 1500 ml Balance 1025 ml 453 ml 618 ml Intake Oral 250 ml 453 ml 1143 ml IV Total 975 ml 975 ml Output Urine Total 200 ml 1500 ml # Voids 1 1 # Bowel Movements 0 1 1 Exam General: No acute distress, thin and frail appearing, appropriately interactive HEENT: Normocephalic, atraumatic. External ears without defect. Anicteric sclerae, moist conjunctivae, and no lid lag. Oxymask with nebulizer in place Neck: Supple Cardiovascular: Distant heart sounds. Regular rate and rhythm with no murmurs, rubs, or gallops appreciated Pulmonary: Diffuse wheezing bilaterally. Poor effort. No use of accessory muscles. Abdomen: Bowel tones present. Soft, nontender, nondistended. No hepatosplenomegaly or masses appreciated. Extremities: No clubbing, cyanosis, edema, or lymphadenopathy appreciated. Skin: Normal temperature, turgor, and texture; no rash, ulcers, or subcutaneous nodules appreciated. Healing small skin abrasions on left osorio. Neurological: Cranial nerves grossly intact. Psychiatric: Normal mood and affect. Alert and oriented to person, place, and time. IVs and Medications Medications Reviewed: Medications were reviewed in detail Lab and Diagnostics Result Diagram: 06/15/16 0218 06/15/16 0218 X-Rays, CTs and MRIs Date of Service: 06/12/16 1504 PROCEDURE: X-RAY CHEST ONE VIEW, PORTABLE ([id number]) INDICATIONS: shortness of breath TECHNIQUE: One view of the chest was acquired. COMPARISON: 09/30/2015 FINDINGS: Surgical changes and devices: None. Lungs and pleura: No pleural effusions or pneumothorax. Lungs are clear. Lung is hyperexpanded and upper lobes are hyperlucent compatible with emphysema. Mediastinum: Mediastinal contours appear normal. Heart size is normal. Aortic calcifications. Bones and chest wall: No suspicious bony lesions. Old fracture right lower ribs laterally. Overlying soft tissues appear unremarkable. IMPRESSION: 1. Chronic obstructive pulmonary disease 2. No acute cardiopulmonary abnormality. Dictated by: Suhas Marino M.D. on 06/12/2016 at 15:29 Approved by: Suhas Marino M.D. on 06/12/2016 at 15:31 Assessment & Plan Patient is a 75-year-old female with COPD, CHF and CVA presenting with shortness of breath and admitted for acute hypoxemic hypercapnic respiratory failure. Hospital day #3. 1. Acute on chronic hypoxemic, hypercapnic respiratory failure. Present on admission. Improving -Suspect secondary to COPD exacerbation and period without supplemental oxygen. Infectious etiology unlikely - chest x-ray without infiltrate, no fever/chills, procalcitonin negative -Patient was on Trilogy overnight but desaturated. Improved with nasal cannula but still desaturating to 50s with minimal activity -Pulmonary consult. Recommendations per Pulmonary appreciated 2. Acute COPD exacerbation. Present on admission. Active -Baseline supplemental oxygen 2L/min at home -Patient received Solu-Medrol 125mg in ED -Prednisone 40mg daily. Anticipate taper upon discharge -Continue levofloxacin 750mg daily with anticipated end date on 06/18/2016 -DuoNeb QIDWA -Albuterol neb PRN -As noted above, Pulmonary consult. 3. Hypertension, chronic. Present on admission. Improving -Continue losartan 25mg daily 4. Alcohol dependence, chronic. Present on admission. Active -Patient reports drinking 2 glasses of vodka every night -Currently no signs of withdrawals. Continue to monitor for withdrawal and initiate CIWA if necessary 5. Normocytic anemia, chronic. Present on admission. Active -Uncertain etiology but a recognized issue since 2013 based on medical records 6. HFrEF, chronic. Present on admission. Stable -Not currently in acute exacerbation based on physical examination. Pro-BNP 199.6 -Last echo 12/2015: Borderline global hypokinesis. EF 50%-55% -Continue losartan 25mg and bisoprolol 2.5mg daily 7. CAD, chronic. Present on admission. Presumed stable -Continue aspirin 81mg 8. Dyslipidemia, chronic. Present on admission. Presumed stable -Continue atorvastatin 10mg daily 9. Hypothyroidism, chronic. Present on admission. Stable -Continue home levothyroxine dose 50mcg daily 10. Depression, chronic. Present on admission. Presumed stable -Continue home dose Zoloft 150 mg daily 11. History of tobacco use -Congratulated patient on maintaining smoking abstinence. Disposition: Pending hospital course. Awaiting pulmonology recommendations. Anticipate discharge back to [place] when respiratory status stabilizes. Pain Evaluation: Adequate Pain Control VTE Prophylaxis: Sub-Q Heparin (Unfractionated) Resuscitation Status: DNR/DNI:Do Not Resuscitate/Intubate Attending Statement The patient was seen and examined together with Dr. Gill on 06/16/2015 and I agree with the history, exam and plan as outlined in the note above. . Clement Gill DO Jun 15, 2016 11:42 Ranulfo Whaley MD Jun 15, 2016 19:40
--- NOTE | 2016-06-15 13:15 | DRSVH ---
PROCEDURE: X-RAY CHEST ONE VIEW, PORTABLE ([id number]) INDICATIONS: hypoxic, hypercapnic, COPD exacerb TECHNIQUE: One view of the chest was acquired. COMPARISON: 06/12/2016 FINDINGS: Surgical changes and devices: None. Lungs and pleura: No pleural effusions or pneumothorax. COPD. No infiltrates. Mediastinum: Mediastinal contours appear normal. Heart size is normal. Bones and chest wall: No suspicious bony lesions. Chronic right rib fractures. Overlying soft tissue s appear unremarkable. IMPRESSION: Chronic obstructive pulmonary disease with no interval change to suggest acute cardiopulmonary abnorm ality Dictated by: Suhas Marino M.D. on 06/15/2016 at 13:13 Approved by: Suhas Marino M.D. on 06/15/2016 at 13:14
--- NOTE | 2016-06-15 16:56 | NUR ---
Social Work: Readiness for Discharge (Continued) D: Pt discussed in am rounds. Pt's respiratory status is still not improved but is anticipated to discharge back to [facility] sometime over the weekend. [facility] has yet to complete a bedside assessment and has not made a decision about pt's acceptance back. APPLICATION SECURITY ENGINEER left a message for Elsy, the assistance aoc director combat plans officer, requesting an update on pt's admission status by day's end. APPLICATION SECURITY ENGINEER informed them that pt has high probability to discharge over the weekend. A: Pt who is ambulating I during admission. P: Anticipate pt to discharge back to [facility] pending bedside assessment and/or acceptance from facility staff. APPLICATION SECURITY ENGINEER to continue to attempt contact with [facility] admissions. ARNULFO Jeronimo
--- NOTE | 2016-06-15 17:42 | NUR ---
Respiratory Pt. has been fluctuating throughout shift with using 2L NC- 4.5L NC. Pt. SpO2 has also been fluctuating from 84%-94%. Pt. up this morning to BSC and dsated to 50s and 60s, oxygen increased to 5L and Pts. SpO2 increased slowly and when SpO2 reached 90% I decreased the oxygen down to 3L and SpO2 sated at 89%-90%. Pt. has trilogy for night use with a 3L bleed in. At this time Pt. denies SOB and bedrest mos of the day due to dsating drastically with activity.
[2016-06-16] VITALS (11 sets, daily range): BP systolic 105–152; BP diastolic 63–93; PULSE 78–90; RESP 16–24; O2SAT 88–96
[2016-06-16] MEDS: Heparin 5,000 Unit/mL Inj SUBQ SCH ×3 (01:40→16:27)
[2016-06-16] MEDS: Albuterol-Ipratropium 3 mL Inhalation Solution NEB SCH ×5 (05:13→21:55)
[2016-06-16 05:53] LABS: BASOPHILS % (AUTO) 0.1 % (0-3); EOSINOPHILS % (AUTO) 0.6 % (0-5); MONOCYTES % (AUTO) 11.7 % (4-12); Mean Corpuscular Hemoglobin 27.1 pg (27.0-35.0); Mean Corpuscular Volume 91.8 fL (81-100); NEUTROPHILS % (AUTO) 61.4 % (40-74); Platelet Count 257 bil/L (150-400)
--- NOTE | 2016-06-16 06:31 | NUR ---
Respiratory Pt has tolerated their home trilogy for nighttime O2 needs with a bleed in of 3L and SpO2 maintained between 88-92%. Pt does get SOB and quickly desats when up to BSC and if on NC pt needs the O2 increased to 3-4L until SpO2 within 88-92% range.
[2016-06-16] MEDS: levoFLOXacin 750 mg Tablet PO SCH (08:21)
[2016-06-16] MEDS: predniSONE 20 mg Tablet PO SCH (08:21)
[2016-06-16] MEDS: ROFLUMILAST 500 MCG PO SCH (08:23)
--- NOTE | 2016-06-16 10:37 | PCM.PNMED ---
Subjective Date of Service Jun 16, 2016 Subjective Patient dsating drastically with activities to 50-60's. At night, patient on Trilogy 3 L, 88-95%. Otherwise uneventful night. Denies chest pain, heart palpitations, nausea, vomiting, diarrhea, constipation. Exam Vital Signs Vital Sign - Last Date Time Temp Pulse Resp B/P Pulse Ox O2 Delivery O2 Flow Rate FiO2 06/16/16 08:46 83 18 88 Nasal Cannula 3.00 06/16/16 08:13 36.4 152/93 06/14/16 08:16 25 Intake and Output 06/15/16 06/15/16 06/16/16 Cumulative From/Thru 15:00 23:00 07:00 06/12/16 14:46 - 06/16/16 06:33 Intake Total 737 ml 400 ml 3255 ml Output Total 600 ml 100 ml 2200 ml Balance 137 ml 300 ml 1055 ml Intake Oral 737 ml 400 ml 2280 ml IV Total 975 ml Output Urine Total 600 ml 100 ml 2200 ml # Voids 3 2 6 # Bowel Movements 1 Exam General: No acute distress, thin and frail appearing, appropriately interactive HEENT: Normocephalic, atraumatic. Moist conjunctivae,Currently O2 88% on 3 L nasal canula. Neck: Supple Cardiovascular: Distant heart sounds. Regular rate and rhythm with no murmurs, rubs, or gallops appreciated Pulmonary: Diffuse wheezing bilaterally. Poor effort. No use of accessory muscles. Abdomen: Bowel tones present. Soft, nontender, nondistended. No hepatosplenomegaly or masses appreciated. Extremities: No clubbing, cyanosis, edema, or lymphadenopathy appreciated. Skin: Normal temperature, turgor, and texture; no rash, ulcers, or subcutaneous nodules appreciated. Healing small skin abrasions on left osorio. Neurological: Cranial nerves grossly intact. Psychiatric: Normal mood and affect. Alert and oriented to person, place, and time. Lab and Diagnostics Result Diagram: 06/16/16 0536 06/16/16 0536 X-Rays, CTs and MRIs Date of Service: 06/12/16 1504 PROCEDURE: X-RAY CHEST ONE VIEW, PORTABLE ([id number]) INDICATIONS: shortness of breath TECHNIQUE: One view of the chest was acquired. COMPARISON: 09/30/2015 FINDINGS: Surgical changes and devices: None. Lungs and pleura: No pleural effusions or pneumothorax. Lungs are clear. Lung is hyperexpanded and upper lobes are hyperlucent compatible with emphysema. Mediastinum: Mediastinal contours appear normal. Heart size is normal. Aortic calcifications. Bones and chest wall: No suspicious bony lesions. Old fracture right lower ribs laterally. Overlying soft tissues appear unremarkable. IMPRESSION: 1. Chronic obstructive pulmonary disease 2. No acute cardiopulmonary abnormality. Dictated by: Suhas Marino M.D. on 06/12/2016 at 15:29 Approved by: Suhas Marino M.D. on 06/12/2016 at 15:31 Assessment & Plan Tram Quiles is a 75-year-old female with COPD, CHF and CVA presenting with shortness of breath and admitted for acute hypoxemic hypercapnic respiratory failure. Hospital day #4. 1. Acute on chronic hypoxemic, hypercapnic respiratory failure. Present on admission. Improving -Suspect secondary to COPD exacerbation and period without supplemental oxygen. Infectious etiology unlikely - chest x-ray without infiltrate, no fever/chills, procalcitonin negative -Patient was on Trilogy overnight but desaturated. Improved with nasal cannula but still desaturating to 50s with minimal activity -Pulmonary consulted. Awaiting recommendations per Pulmonary. 2. Acute COPD exacerbation. Present on admission. Active -Baseline supplemental oxygen 2L/min at home -Patient received Solu-Medrol 125mg in ED -Prednisone 40mg daily. Anticipate taper upon discharge -Continue levofloxacin 750mg daily with anticipated end date on 06/18/2016 -DuoNeb QIDWA -Albuterol neb PRN -Restart home Arfomoterol and Budesonide -As noted above, Pulmonary consult -Physical therapy evaluation for discharge preparation. 3. Hypertension, chronic. Present on admission. Improving -Continue losartan 25mg daily 4. Alcohol dependence, chronic. Present on admission. Active -Patient reports drinking 2 glasses of vodka every night -Currently no signs of withdrawals. Continue to monitor for withdrawal and initiate CIWA if necessary 5. Normocytic anemia, chronic. Present on admission. Active -Uncertain etiology but a recognized issue since 2013 based on medical records 6. HFrEF, chronic. Present on admission. Stable -Not currently in acute exacerbation based on physical examination. Pro-BNP 199.6 -Last echo 12/2015: Borderline global hypokinesis. EF 50%-55% -Continue losartan 25mg and bisoprolol 2.5mg daily 7. CAD, chronic. Present on admission. Presumed stable -Continue aspirin 81mg 8. Dyslipidemia, chronic. Present on admission. Presumed stable -Continue atorvastatin 10mg daily 9. Hypothyroidism, chronic. Present on admission. Stable -Continue home levothyroxine dose 50mcg daily 10. Depression, chronic. Present on admission. Presumed stable -Continue home dose Zoloft 150 mg daily 11. History of tobacco use -Congratulated patient on maintaining smoking abstinence. Disposition: Pending hospital course. Awaiting pulmonology recommendations. Anticipate discharge back to [facility] when respiratory status stabilizes. Pain Evaluation: Adequate Pain Control VTE Prophylaxis: Sub-Q Heparin (Unfractionated) Resuscitation Status: DNR/DNI:Do Not Resuscitate/Intubate Attending Statement The patient was seen and examined together with Dr. Connell on 06/16/2016 and I agree with the history, exam and plan as outlined in the note above. . Ani Connell DO Jun 16, 2016 10:37 Ranulfo Whaley MD Jun 16, 2016 17:18
[2016-06-16] MEDS: BISOPROLOL 2.5 MG PO SCH (13:00)
--- NOTE | 2016-06-16 14:36 | NUR ---
Evaluation completed. Please go to "Notes" then click on "Assessments and Notes" (bottom left corner of screen). Then select appropriate discipline tab on top of screen.
--- NOTE | 2016-06-16 15:29 | PROG NOTE ---
[address] [address] PROGRESS NOTE PATIENT: ANABELLE YANCEY : 1940 MR#: [id number] ADMIT: 06/12/2016 JOB ID: [id number] DATE: 06/16/2016 PROBLEM: Acute exacerbation of COPD. SUBJECTIVE: May be breathing a little bit better. Used the Trilogy last night. Apparently woke up every 5 minutes though was not due to noise from her Trilogy machine. Some cough. Overall breathing maybe a little bit better today. OBJECTIVE: Temperature 36.5, pulse 83-90, respiratory rate 16-18, blood pressure 147/86. O2 sat on 2 L is 91%. Comfortable appearing. Sitting in bed with nasal cannula. Eating lunch. Eyes: Conjunctivae are pink. Chest: Moderately decreased breath sounds. Bronchial quality. Mild low-pitched expiratory wheezes. Mild use of accessory muscles. Heart: Regular rhythm. Heart tones normal. Abdomen soft. Bowel tones present. Extremities: No pretibial edema. LABORATORY DATA: Shows a white count of 6800 with a normal differential. Hemoglobin stable at 8.9. Platelet count stable at 257,000. Sodium 137, potassium 3.5, chloride 93, CO2 is 33, BUN 21, creatinine 0.6. Calcium 9.0. ASSESSMENT: 1. Chronic obstructive pulmonary disease. Need support with noninvasive positive pressure ventilation. Does have a Trilogy machine. However, we do not have access to the settings. Will have to call the durable medical equipment supplier to obtain access to the settings and ability to change the settings or have them come in and perform this service for us. In any case, this is the leading modality for securing her improvement. 2. Potassium 3.5. A little low for a COPD-er. Would like to push that up to the high 4's. PLAN: 1. Contact durable medical equipment supplier. 2. Increase potassium supplementation.
[2016-06-16 16:11] LABS: Magnesium 1.5 mg/dL (1.6-2.6); Phosphorus 2.2 mg/dL (2.5-4.9)
--- NOTE | 2016-06-16 16:13 | NUR ---
Social Work Note: Continued Discharge Planning Data& Assessment: Per pt request, SW arranged Hospice informational visit tomorrow at 2p.m.in her hospital room. Pt also explained she is anticipating requiring assisted services at her [facility] that she was not using prior to this hospitalization. Pt has been very independent. SW spoke with Kamilah Director at [facility] who agreed to complete bedside assessment today with pt and make the arrangements for pt to transfer as an official assisted living client instead of independent. SW provided appropriate clinicals as requested. SW to continue to follow. Plan: Anticipated discharge back to [facility] on the assisted side of the facility when medically ready. SW to continue to follow for Hospice services and any other needs from pt. Hospice info visit tomorrow at 2p.m. Pt denies any other needs at this time. SW to continue to follow. ARNULFO [place]
[2016-06-16] MEDS ORDERED: Sodium-Potassium Phosphorus Packet PO ONE (17:15)
[2016-06-16] MEDS ORDERED: Magnesium Chloride SR 64 mg ER24 Tablet PO ONE (17:20)
--- NOTE | 2016-06-16 18:02 | NUR ---
Respiration/Labs Pt. has been sating in the mid 80s to low 90s on 3L NC and sometimes on 2L NC. Pt. used her trilogy just before dinner and has no c/o about the machine. Pt. still coughing up thin/thick creamy mucous. Pts. magnesium and potassium where low and MD was made aware.
[2016-06-16] MEDS: Arformoterol 15 mCg/2 mL Inhalation Solution NEB SCH (20:30)
[2016-06-16] MEDS: Budesonide 0.5 mg/2 mL Inhalation Solution NEB SCH (21:55)
[2016-06-17] MEDS: Heparin 5,000 Unit/mL Inj SUBQ SCH ×2 (00:53→09:08)
[2016-06-17 02:36] VITALS: BP 127/82; PULSE 76; RESP 20; O2SAT 94
[2016-06-17 03:14] LABS: BASOPHILS % (AUTO) 0.1 % (0-3); EOSINOPHILS % (AUTO) 1.2 % (0-5); Mean Corpuscular Hemoglobin 27.1 pg (27.0-35.0); Mean Corpuscular Volume 90.8 fL (81-100); Platelet Count 274 bil/L (150-400)
--- NOTE | 2016-06-17 04:20 | NUR ---
Respiratory/Rest Pt continues to tolerate trilogy with 3L bleed-in. Pt SpO2 88-91% on the 3L bleed-in. Pt continues to use 1-3L NC when not on the trilogy with SpO2 90-94% when at rest. Pt continues to desat into the low 60s-70s when up to the [facility]. Pt has been able to get rest this evening and does not appear to be awakening every 5 minutes as the pt reported she had the night before.
[2016-06-17] MEDS ORDERED: Potassium Chloride 20 mEq SR Tablet PO SCH (08:00)
[2016-06-17] MEDS: Arformoterol 15 mCg/2 mL Inhalation Solution NEB SCH (08:10)
[2016-06-17 08:11] VITALS: PULSE 76; RESP 18; O2SAT 91
[2016-06-17] MEDS: Budesonide 0.5 mg/2 mL Inhalation Solution NEB SCH (08:11)
[2016-06-17] MEDS: Albuterol-Ipratropium 3 mL Inhalation Solution NEB SCH ×2 (08:11→12:15)
[2016-06-17] MEDS: ROFLUMILAST 500 MCG PO SCH (08:30)
[2016-06-17 09:00] VITALS: BP 142/79; PULSE 91; RESP 18; O2SAT 90
[2016-06-17] MEDS: levoFLOXacin 750 mg Tablet PO SCH (09:06)
[2016-06-17] MEDS: predniSONE 20 mg Tablet PO SCH (09:07)
[2016-06-17] MEDS: BISOPROLOL 2.5 MG PO SCH (09:09)
--- NOTE | 2016-06-17 09:30 | NUR ---
DEE signed. ARNULFO George
[2016-06-17 12:04] VITALS: BP 134/88; PULSE 81; RESP 20; O2SAT 90
[2016-06-17 12:15] VITALS: PULSE 78; RESP 18; O2SAT 93
[2016-06-17] MEDS ORDERED: POTA20TA16 PO (12:21)
[2016-06-17] MEDS ORDERED: BUDE0.5A NEB (12:21)
[2016-06-17] MEDS ORDERED: IPRA3AMP IH (12:21)
[2016-06-17] MEDS ORDERED: ARFO15VI2 NEB (12:21)
--- NOTE | 2016-06-17 12:40 | PCM.DIMED ---
Clement Gill DO 06/17/16 1227: Discharge Instructions Date of Service Jun 17, 2016 Dates of Hospitalization Jun 12, 2016 at 17:23 Discharge Diagnosis Discharge Diagnosis 1. Acute on chronic hypoxemic, hypercapnic respiratory failure 2. Acute COPD exacerbation 3. Hypertension, chronic 4. Alcohol dependence, chronic 5. Normocytic anemia, chronic 6. Heart Failure with reduced Ejection Fraction, chronic 7. CAD, chronic 8. Dyslipidemia, chronic 9. Hypothyroidism, chronic 10. Depression, chronic 11. History of tobacco use Medication Instructions During this hospitalization there were changes to your medication regimen and you were started on some new medications. Please follow these direction unless otherwise indicated by a physician. Note that your physician may continue to change your medications. You can stop taking the Advair as there will be a substitute below. New medications: -Prednisone 20mg. Take 2 tablets for the next 2 days then continue with 20mg daily until you see your primary care doctor -Arformoterol (Brovana) 15mcg/2mL vial. Use this nebulized medication twice daily -Budesonide (Pulmicort) 0.5mg/2mL. Use this nebulized medication twice daily -Potassium chloride 20mEq. Take one tablet with each meal daily Continue your other home medications. Take them as directed. Diet Heart Healthy Activity Limited until seen by PCP, Other Call your provider Shortness of breath, Chest pain Patient Instructions Follow up with your PCP within a week. You should also follow up with your plant manager, Dr. Stern. You should contact the supplier of your Trilogy machine to have them look at it and adjust it if they need to. You are scheduled to have a meeting with hospice after you get home. Follow-up Provider: Edil Miller MD Follow-up with PCP in: 1 week Ranulfo Whaley MD 06/17/16 1658: Discharge Instructions Attending's Statement The patient was seen and examined together with Dr. Gill on 06/17/2016 and I agree with the history, exam and plan as outlined in the note above. . Clement Gill DO Jun 17, 2016 12:27 Ranulfo Whaley MD Jun 17, 2016 16:58
[2016-06-17] MEDS ORDERED: PRE20 PO (12:41)
--- NOTE | 2016-06-17 13:50 | NUR ---
Social Work Note: Discharge Data& Assessment: Per pt is medically ready to discharge home to [facility] on the Assisted side of the facility via POV. Hospice will follow up with the facility in regard to organizing a Hospice informational visit tomorrow. Pt preferred to go home to [facility] today and have Hospice follow up with her tomorrow for an informational visit. Kamilah Director at [facility] completed bedside assessment and necessary paperwork for pt to be transitioned to the Assisted side of the facility yesterday. OMERO confirmed with MAX De Leon from [facility] today that pt is able to return home this afternoon. Appropriate signed discharge paperwork faxed to [facility], originals in packet for pt to bring to [facility] and present to RN on arrival. send prescriptions electronically to pt pharmacy. [facility] RT to meet pt at [facility] to adjust her Trilogy Machine, SW notified RT that pt will be leaving around 3:00p.m. Pt daughter transporting pt privately. [facility] MAX De Leon denies any other needs. Pt denies any other needs. No other discharge needs identified. All updated and agreeable to plan. Plan: Per pt is medically ready to discharge back to [facility], on the assisted living side of the facility, via POV. Hospice to follow up with [facility] and pt regarding Hospice informational visit tomorrow. [facility] RT notified of pt discharge and will meet pt at [facility] to adjust pt Trilogy machine if needed. MD notified and RN notified, all updated and agreeable to plan. Pt denies any other needs. No other discharge needs identified. ARNULFO [place]
--- NOTE | 2016-06-17 15:51 | NUR ---
Discharge Pt. discharged to [facility] at 1455 in stable condition. Pt. has home oxygen to wear in transport. Transported by daughter. IV and tele dc'd prior to discharge. Report called to [facility] RN. Packet and instructions sent with pt. and daughter. No questions or concerns at this time.
--- NOTE | 2016-06-18 11:37 | PCM.DC.MED ---
Discharge Summary Date of Service Jun 18, 2016 Dates of Hospitalization Date of Hospital Admission Jun 12, 2016 at 17:23 Date of Discharge: Jun 17, 2016 Providers: Admitting Physician: Ranulfo Whaley MD Primary Care Physician: Edil Miller MD Attending Physician: Ranulfo Whaley MD Diagnosis at Time of Discharge Diagnosis at Time of Discharge 1. Acute on chronic hypoxemic, hypercapnic respiratory failure 2. Acute COPD exacerbation 3. Hypertension, chronic 4. Alcohol dependence, chronic 5. Normocytic anemia, chronic 6. Heart Failure with reduced Ejection Fraction, chronic 7. CAD, chronic 8. Dyslipidemia, chronic 9. Hypothyroidism, chronic 10. Depression, chronic 11. History of tobacco use Consultations Dr. Michael Wright of Pulmonology Procedures XRay, CTs & MRIs Date of Service: 06/12/16 1504 PROCEDURE: X-RAY CHEST ONE VIEW, PORTABLE ([id number]) INDICATIONS: shortness of breath TECHNIQUE: One view of the chest was acquired. COMPARISON: 09/30/2015 FINDINGS: Surgical changes and devices: None. Lungs and pleura: No pleural effusions or pneumothorax. Lungs are clear. Lung is hyperexpanded and upper lobes are hyperlucent compatible with emphysema. Mediastinum: Mediastinal contours appear normal. Heart size is normal. Aortic calcifications. Bones and chest wall: No suspicious bony lesions. Old fracture right lower ribs laterally. Overlying soft tissues appear unremarkable. IMPRESSION: 1. Chronic obstructive pulmonary disease 2. No acute cardiopulmonary abnormality. Dictated by: Suhas Marino M.D. on 06/12/2016 at 15:29 Approved by: Suhas Marino M.D. on 06/12/2016 at 15:31 Brief History Per admit note: Patient is a 75-year-old female with COPD, CHF and CVA presenting with shortness of breath. Patient reports the shortness of breath started about two days ago with an associated occasional cough. She states the cough productive of clear, milky sputum. She currently resides at [facility] and reports using supplemental oxygen at baseline and Trilogy at night; however, due to the mask being uncomfortable she does not use Trilogy consistently. Earlier today the patient was taking a nap and the nasal cannula for her supplemental oxygen fell off. Her reproduction order processor happened to be present and found the patient somnolent. The patient is not aware of how long she was without supplemental oxygen. The patient was subsequently brought to [facility] ED for further evaluation. ABG in the ED : 7.230 / 104 / 65.4 / 42.7. Patient was started on BiPAP and given a dose of Solu-Medrol 125mg in the ED. At time of visit, the patient was alert. She denies fever, chills, chest pain, abdominal pain, emesis, dysuria. Vitals in the ED: temp 36.4, HR 91, RR 22 satting 100% on BiPAP, BP 160/90. Chest x-ray suggestive of COPD and reads no acute cardiopulmonary abnormality. Hospital Course Tram Quiles is a 75-year-old female with COPD, CHF and CVA presenting with shortness of breath and admitted for acute hypoxemic hypercapnic respiratory failure secondary to acute COPD exacerbation. ABG on admit: 7.230 / 104 / 65.4 / 42.7. She was placed on BiPAP and treated with steroids and antibiotics. Pulmonology was consulted and modified her COPD medications to include nebulized arformoterol and budesonide. Her breathing gradually improved with repeat ABG 7.369 / 66.0 / 54.7 / 37.1. She was placed back on her home Trilogy. Planned hospice meeting with the patient after her discharge. 1. Acute on chronic hypoxemic, hypercapnic respiratory failure. Present on admission. Resolved -Suspect secondary to COPD exacerbation and period without supplemental oxygen. Infectious etiology unlikely - chest x-ray without infiltrate, no fever/chills, procalcitonin negative -Patient placed back on her Trilogy during the night and nasal cannula during the day. Patient desaturates with activity. She will be switched from independent living to assisted living at [facility]. -Patient will require supplier of her Trilogy to assess her settings 2. Acute COPD exacerbation. Present on admission. Active -Baseline supplemental oxygen 2L/min at home -Patient received Solu-Medrol 125mg in the ED, which was switched to prednisone. Initially 60mg daily then decreased to 40mg daily. She was instructed to continue 40mg daily for two more days after her discharge then take 20mg daily thereafter until she sees her PCP or senior mobile web developer, who can taper. -Patient was treated with levofloxacin 750mg daily for 5 days. She was advised to continue her home azithromycin after discharge. -Patient was continued on DuoNeb and albuterol -She was started on and discharged with nebulized arformoterol and budesonide 3. Hypertension, chronic. Present on admission. Improving -Patient was continued on home dose losartan 25mg daily 4. Alcohol dependence, chronic. Present on admission. Active -Patient reports drinking 2 glasses of vodka every night -Patient without signs of withdrawals during hospitalization. 5. Normocytic anemia, chronic. Present on admission. Active -Uncertain etiology but a recognized issue since 2013 based on medical records. Consider further work up as outpatient. 6. HFrEF, chronic. Present on admission. Stable -No evidence of acute CHF exacerbation based on physical examination. Pro-BNP 199.6 -Last echo 12/2015: Borderline global hypokinesis. EF 50%-55% -Patient was continued on home dose losartan 25mg and bisoprolol 2.5mg daily 7. CAD, chronic. Present on admission. Presumed stable -Patient was continued on home dose aspirin 81mg 8. Dyslipidemia, chronic. Present on admission. Presumed stable -Patient was continued on home dose atorvastatin 10mg daily 9. Hypothyroidism, chronic. Present on admission. Stable -Patient was continued on home dose levothyroxine dose 50mcg daily 10. Depression, chronic. Present on admission. Presumed stable -Patient was continued on home dose Zoloft 150 mg daily 11. History of tobacco use -Congratulated patient on maintaining smoking abstinence. Exam Vital Signs (Last) Date Time Temp Pulse Resp B/P Pulse Ox O2 Delivery O2 Flow Rate FiO2 06/17/16 12:15 78 18 93 Nasal Cannula 1.00 06/17/16 12:04 36.8 134/88 06/14/16 08:16 25 Exam General: No acute distress, thin and frail appearing, appropriately interactive HEENT: Normocephalic, atraumatic. External ears without defect. Anicteric sclerae, moist conjunctivae, and no lid lag. Nasal cannula in place. Neck: Supple Cardiovascular: Distant heart sounds. Regular rate and rhythm with no murmurs, rubs, or gallops appreciated Pulmonary: Mild wheezing bilaterally. Poor effort. No use of accessory muscles. Abdomen: Bowel tones present. Soft, nontender, nondistended. No hepatosplenomegaly or masses appreciated. Extremities: No clubbing, cyanosis, edema, or lymphadenopathy appreciated. Skin: Normal temperature, turgor, and texture; no rash, ulcers, or subcutaneous nodules appreciated. Healing small skin abrasions on left osorio. Neurological: Cranial nerves grossly intact. Psychiatric: Normal mood and affect. Alert and oriented to person, place, and time. Test 06/12/16 15:09 06/13/16 07:10 06/13/16 15:02 06/15/16 07:45 Troponin T < 0.010ug/L (0.0-0.011) Pro-B-Type Natriuretic Peptide 199.6pg/mL (0-301) Procalcitonin 0.07ng/mL (0.00-0.08) Urine Color Yellow (YELLOW) Urine Appearance Clear (CLEAR,HAZY) Urine pH 6.0 (5.0-8.0) Urine Specific Mayflower 1.021 (1.003-1.035) Urine Protein 30mg/dL (NEG,TRACE) Urine Glucose (UA) Negativemg/dL (NEGATIVE) Urine Ketones 40mg/dL (NEGATIVE) Urine Occult Blood Moderate (NEGATIVE) Urine Nitrite Negative (NEGATIVE) Urine Bilirubin Negative (NEGATIVE) Urine Urobilinogen Normalmg/dL (NORMAL) Urine Leukocyte Esterase Negative (NEGATIVE) Urine RBC 3-10/hpf (0-2) Urine WBC 0-5/hpf (0-5) Urine Epithelial Cells Many/hpf (NONE-MOD) Urine Crystals None seen (NONE SEEN) Urine Bacteria Few/hpf (NONE-FEW) Urine Hyaline Casts Occasional/lpf (NONE) Urine Granular Casts None seen (NONE SEEN) Urine Waxy Casts None seen (NONE SEEN) Urine Red Blood Cell Casts None seen (NONE SEEN) Urine White Blood Cell Casts None seen (NONE SEEN) Urine Mucus Present (None Seen) Urine Trichomonas None seen (NONE SEEN) Urine Yeast None (NONE SEEN) Urine Culture Reflexed Not indicated Hold Urine Received (Received) Test 06/16/16 05:36 06/17/16 02:40 Phosphorus Level 2.2mg/dL (2.5-4.9) Magnesium Level 1.5mg/dL (1.6-2.6) White Blood Count 8.1th/mm3 (3.8-10.1) Red Blood Count 3.36mil/mm3 (3.90-5.20) Hemoglobin 9.1g/dL (12.0-15.6) Hematocrit 30.5% (35.0-46.0) Mean Corpuscular Volume 90.8fL (81-100) Mean Corpuscular Hemoglobin 27.1pg (27.0-35.0) Mean Corpuscular Hemoglobin Concent 29.8% (32.0-37.0) Red Cell Distribution Width 14.2% (12.3-15.4) Platelet Count 274bil/L (150-400) Neutrophils (%) (Auto) 62.0% (40-74) Lymphocytes (%) (Auto) 24.5% (14-46) Monocytes (%) (Auto) 12.0% (4-12) Eosinophils (%) (Auto) 1.2% (0-5) Basophils (%) (Auto) 0.1% (0-3) Sodium Level 136mEq/L (134-144) Potassium Level 3.6mEq/L (3.5-5.2) Chloride Level 94mEq/L (97-108) Carbon Dioxide Level 34mmol/L (18-29) Blood Urea Nitrogen 14mg/dL (8-27) Creatinine 0.72mg/dL (0.57-1.00) Estimat Glomerular Filtration Rate 114mL/min (>59) Glucose Level 96mg/dL (60-99) Calcium Level 8.9mg/dL (8.5-10.1) Total Bilirubin 0.2mg/dL (0.0-1.2) Aspartate Amino Transf (AST/SGOT) 20U/L (0-50) Alanine Aminotransferase (ALT/SGPT) 10U/L (0-32) Alkaline Phosphatase 46U/L (25-165) Total Protein 5.4g/dL (6.4-8.4) Albumin 3.4g/dL (3.4-5.0) Discharge Medications Discharge Medications Arformoterol Tartrate (Brovana) 15 Mcg/2 Ml Vial.neb 15 MCG NEB BID Prescribed by: HEATH ADORNO DO Aspirin (Aspirin) 81 Mg Tablet.dr 81 MG PO DAILY Prescribed by: GERALDINE MCKEON DO Atorvastatin (Lipitor) 10 Mg Tab 10 MG PO HS (Reported) Azithromycin (Zithromax (Z-Jose G)) 250 Mg Tablet 250 MG PO every other day ( Reported) Bisoprolol Fumarate (Bisoprolol Fumarate) 5 Mg Tablet 2.5 MG PO QAM (Reported) Budesonide (Pulmicort) 0.5 Mg/2 Ml Ampul.neb. 0.5 MG NEB BID Prescribed by: HEATH ADORNO, DO Ipratropium/Albuterol Sulfate (Iprat-Albut 0.5-3(2.5) mg/3 mL Inhalant Soln) 3 Ml Ampul.neb 3 ML IH QID Prescribed by: HEATH ADORNO DO Levothyroxine (Synthroid) 50 Mcg Tablet 50 MCG PO DAILYAC Prescribed by: MARIELA MILLER MD Losartan Potassium (Cozaar) 25 Mg Tablet 25 MG PO DAILY Prescribed by: GERALDINE MCKEON, DO Oxybutynin Chloride (Oxybutynin Chloride) 5 Mg Tablet 5 MG PO BID (Reported) Potassium Chloride (Potassium Chloride) 20 Meq Tab.er.prt 20 MEQ PO DAILYWM Prescribed by: HEATH ADORNO DO Prednisone (PredniSONE) 20 Mg Tablet 20 MG PO DAILY Prescribed by: HEATH ADORNO DO Roflumilast (Daliresp) 500 Mcg Tablet 500 MCG PO DAILY (Reported) Sertraline HCl (Sertraline) 100 Mg Tablet 150 MG PO DAILY (Reported) As needed Albuterol Sulfate (Ventolin HFA Inhaler) 200 Puff/18 Gm Inhaler 2 PUFFS INH Q4 PRN PRN For Wheezing (Reported) Additional med instructions During this hospitalization there were changes to your medication regimen and you were started on some new medications. Please follow these direction unless otherwise indicated by a physician. Note that your physician may continue to change your medications. You can stop taking the Advair as there will be a substitute below. New medications: -Prednisone 20mg. Take 2 tablets for the next 2 days then continue with 20mg daily until you see your primary care doctor -Arformoterol (Brovana) 15mcg/2mL vial. Use this nebulized medication twice daily -Budesonide (Pulmicort) 0.5mg/2mL. Use this nebulized medication twice daily -Potassium chloride 20mEq. Take one tablet with each meal daily Continue your other home medications. Take them as directed. Followup Plan Discharge Diet: Heart Healthy Discharge Activity: Limited until seen by PCP, Other Patient Instructions Follow up with your PCP within a week. You should also follow up with your senior mobile web developer, Dr. Stenr. You should contact the supplier of your Trilogy machine to have them look at it and adjust it if they need to. You are scheduled to have a meeting with hospice after you get home. Follow-up Provider: Edil Miller MD Follow-up with PCP in: 1 week Time spent Greater than 30 minutes was spent in preparation of discharge with greater than 50% of that time dedicated to patient counseling and coordination of care. . Attending Statement The patient was seen and examined together with Dr. Adorno on 06/17/2016 and I agree with the history, exam and plan as outlined in the note above. . copies to: Edil Miller MD, Bob A DO Jun 18, 2016 11:37 Ranulfo Whaley MD Jun 19, 2016 10:57
== END 2016-06-17 14:57 | disposition home or self-care (01) | DRG 189 ==
LOC: EDUNIT# 14:40 → SED 14:40 → EDBD 14:40 → PCC 17:23
PROVIDERS: ADMIT Internal Medicine; ATTEND Internal Medicine
PROC: 4A033B1 Measurement of Arterial Pressure, Peripheral, Percutaneous Approach (ICD-10-PCS; principal; 2016-06-12)
PROC: 5A09457 Assistance with Respiratory Ventilation, 24-96 Consecutive Hours, Continuous Positive Airway Pressure (ICD-10-PCS; 2016-06-12)
DX: J96.22 Acute and chronic respiratory failure with hypercapnia (principal); J44.1 Chronic obstructive pulmonary disease with (acute) exacerbation; I50.22 Chronic systolic (congestive) heart failure; J96.21 Acute and chronic respiratory failure with hypoxia; I10 Essential (primary) hypertension; F10.20 Alcohol dependence, uncomplicated; D64.9 Anemia, unspecified; I25.10 Atherosclerotic heart disease of native coronary artery without angina pectoris; E78.5 Hyperlipidemia, unspecified; E03.9 Hypothyroidism, unspecified; Z66 Do not resuscitate; F32.9 Major depressive disorder, single episode, unspecified; Z79.82 Long term (current) use of aspirin; Z86.73 Personal history of transient ischemic attack (TIA), and cerebral infarction without residual deficits; Z79.51 Long term (current) use of inhaled steroids